=== PATIENT | female | born 1955 | race Caucasian/White ===

== ENCOUNTER 2016-08-30 09:07 | Emergency (ER) | payer OTHER ==
[2016-08-30 09:12] VITALS: BMI 27.6
[2016-08-30 09:13] VITALS: RESP 18; TEMP 98.1
--- NOTE | 2016-08-30 11:09 | C.PDOC ---
History Of Present Illness A 61 year old female presents to the emergency room with complaints of a painful lump to the right groin for the last 20 days. Patient reports some redness at first and was seen at [facility] [place] 15 days ago. Patient was given antibiotics and notes that the redness went away. However, patient states that the lump has persisted and she went back to [facility] [place] on 08/28/16. Patient had a CT completed and was given more antibiotics, which she has not taken yet. Patient denies any fever, chills, nausea, vomiting, diarrhea, or any other complaints. Time Seen by Provider: 08/30/16 09:16 Chief Complaint (Nursing): Abnormal Skin Integrity History Per: Patient History/Exam Limitations: no limitations Onset/Duration Of Symptoms: Days (20) Current Symptoms Are (Timing): Still Present Severity: Mild Recent travel outside of the [place]: No Past Medical History Reviewed: Historical Data, Nursing Documentation, Vital Signs Vital Signs: Last Vital Signs Temp 98.1 F 08/30/16 09:13 Pulse 89 08/30/16 11:46 Resp 18 08/30/16 11:46 BP 129/75 08/30/16 11:46 Pulse Ox 100 08/30/16 13:06 - Medical History PMH: HTN Family History: States: No Known Family Hx - Social History Hx Alcohol Use: No Hx Substance Use: No - Immunization History Hx Tetanus Toxoid Vaccination: No Hx Influenza Vaccination: No Hx Pneumococcal Vaccination: No Review Of Systems Except As Marked, All Systems Reviewed And Found Negative. Constitutional: Negative for: Fever, Chills, Weakness, Malaise Cardiovascular: Negative for: Chest Pain Respiratory: Negative for: Cough, Shortness of Breath Gastrointestinal: Negative for: Nausea, Vomiting, Abdominal Pain, Diarrhea, Constipation, Hematochezia Genitourinary: Negative for: Dysuria Neurological: Negative for: Headache, Dizziness Physical Exam - Physical Exam Appears: Well, Non-toxic Skin: No Rash, Other (Firm mass in right groin. Mild tenderness. No fluctuance, warmth, or erythema. ) Head: Atraumatic, Normacephalic Oral Mucosa: Moist Cardiovascular: Rhythm Regular Respiratory: Normal Breath Sounds, No Rales, No Rhonchi, No Wheezing Gastrointestinal/Abdominal: Soft, No Tenderness Extremity: Normal ROM, No Tenderness ED Course And Treatment O2 Sat by Pulse Oximetry: 100 Medical Decision Making Medical Decision Makin disc w Dr García in [facility]- pt can be seen at 9AM tomorrow I disc w the pt and her son the concern for cancer and importance of follow up tomorrow in clinic to continue with outpatient evaluation. They v/u. All questions and concerns addressed at this time. Previous CT Impression on 08/28; As read by [facility] [place] radiology; 1. No appendicitis, diverticulitis, or bowel obstruction. 2 . The 4.6 x 5.7 cm irregular enhancing mas within the pelvis appears to abut the uterus and may represent fibroid. Ultrasound will be helpful to further evaluate. 3. The diffuse low attenuation of the liver suggests fatty infiltration. The right groin reveals a palpable mass measuring 3.0 x 3.7 x 3.2 cm. Central portion of mass contains fatty elements and has surrounding inflammatory changes. The mass appears separate from bowel. The differential for the mass will include a fat containing inguinal hernia, enlarged lymph node, or other soft tissue mass. The inflammatory changes and the increased density within the fatty elements of the mass are concerning and is difficult to exclude vascular compromise within the mass. Please correlate clinically. These findings were discussed with Dr. Copeland. Disposition - Disposition Referrals: [facility] at [facility] [Outside] Disposition: HOME/ ROUTINE Disposition Time: 10:57 Condition: STABLE Additional Instructions: Please go to the clinic tomorrow at 9am and you will be seen. Phone number and address are provided. Return to the ER for any worsening symptoms or concerns. Forms: General Discharge Instructions - Clinical Impression Clinical Impression: Groin mass - Scribe Statement The provider has reviewed the documentation as recorded by the Adrianibestrellita Gresham All medical record entries made by the Adrianibestrellita were at my direction and personally dictated by me. I have reviewed the chart and agree that the record accurately reflects my personal performance of the history, physical exam, medical decision making, and the department course for this patient. I have also personally directed, reviewed, and agree with the discharge instructions and disposition.
[2016-08-30 11:47] VITALS: BP 129/75; PULSE 89
[2016-08-30 13:06] VITALS: O2SAT 100
== END 2016-08-30 11:50 | disposition home or self-care (01) ==
LOC: C.ER 09:07 → SUPCPDRO 09:07 → C.ER 11:50
DX: R19.09 Other intra-abdominal and pelvic swelling, mass and lump (principal)